=== PATIENT | male | born 1975 | race Caucasian/White ===

== ENCOUNTER 2016-12-20 19:02 | Emergency (ER) | payer OTHER ==
[~2016-12-20] VITALS: Ht 180.3 cm; Wt 127.0 kg
[~2016-12-20 19:02] MED LIST: AMITRIPTYLINE H10 MG PO; ASPIR-LOW81 MG PO; ATORVASTATIN CA80 MG PO; BACLOFEN10 MG PO; CARBAMAZEPINE200 M1 PO; CIPRO500 MG PO; FLOMAX0.4 MG PO; GLIPIZIDE5 MG PO; HYDROCODON-ACE1 EAC7 PO; LISINOPRIL-HCT1 EAC3 PO; MELOXICAM15 MG PO; METFORMIN HCL500 MG PO; MOTRIN600 MG PO; NICOTINE PATCH1 EAC2 TD; NOHOMEMEDS; NORCO 5/3251 TABLET PO; PEN-VEE K,VEET500 MG PO; PERCOCET 5/31 TABLET PO; PERCOCET 7.51 TABLET PO; PROMETHAZINE HC25 M1 PO; VALIUM5 MG PO; ZOFRAN4 MG PO
[2016-12-20 21:18] VITALS: BP 124/92
== END 2016-12-20 21:18 | disposition home or self-care (01) ==
LOC: EME 19:02
DX: L76.22 Postprocedural hemorrhage of skin and subcutaneous tissue following other procedure (principal); G89.18 Other acute postprocedural pain; M54.2 Cervicalgia; Z98.1 Arthrodesis status; R05 Cough; E11.9 Type 2 diabetes mellitus without complications; Z87.442 Personal history of urinary calculi; Z86.73 Personal history of transient ischemic attack (TIA), and cerebral infarction without residual deficits; Z79.891 Long term (current) use of opiate analgesic; F17.200 Nicotine dependence, unspecified, uncomplicated
CPT/HCPCS: 72040; 99281; 99284

== ENCOUNTER 2017-04-06 00:27 | Emergency (ER) | payer OTHER ==
[~2017-04-06] VITALS: Ht 180.3 cm; Wt 130.1 kg
[2017-04-06 01:14] LABS: BASOPHIL COUNT 0.1 K/uL (0-0.1); EOSINOPHIL (%) 5.4 % (0-5); EOSINOPHIL COUNT 0.8 K/uL (0-0.3); HEMATOCRIT 50.1 % (38.0-50.0); IMMATURE GRANULOCYTE (%) 0.4 % (0.0-0.7); IMMATURE GRANULOCYTE COUNT 0.1 K/uL; INSTRUMENT ABS NEUTROPHIL CT 7.7 K/uL; LYMPHOCYTE COUNT 4.8 K/uL (1.0-2.8); MCH 29.1 PG (29.0-34.0); MCHC 34.3 G/DL (30.0-36.0); MCV 84.8 FL (86-99); MEAN PLAT.VOLUME 9.6 uM^3 (9.0-12.4); MONOCYTE (%) 8.1 % (3-12); MONOCYTE COUNT 1.2 K/uL (0-0.8); NEUTROPHIL (%) 52.8 % (45-76); NEUTROPHIL COUNT 7.7 K/uL (1.8-6.4); PLATELET COUNT 323 K/uL (156-360); RBC DIS.WIDTH-CV 13.3 % (11.8-14.6); RBC DIS.WIDTH-SD 41.1 % (39-53); RED BLOOD COUNT 5.91 M/uL (4.00-5.50); WHITE BLOOD COUNT 14.6 K/uL (4.1-10.2)
[2017-04-06 01:23] LABS: CHLORIDE 100 mEq/L (99-109); POTASSIUM 3.5 mEq/L (3.7-5.4); SODIUM 136 mEq/L (136-147)
[2017-04-06 01:24] LABS: GLUCOSE 198 mg/dL (70-99); INTER. NORMALIZED RATIO 1.1; PROTHROMBIN TIME 10.7 (9.2-11.2); PTT 28.8 (25-32)
[2017-04-06 01:26] LABS: ANION GAP 10 MEQ/L (2-14)
[2017-04-06 01:28] LABS: GFR ESTIMATE (CALCULATED) > 59 mL/min/
[2017-04-06 01:29] LABS: UREA NITROGEN (BUN) 16 mg/dL (9-23)
[2017-04-06 01:34] LABS: TROP-I INTERPRETATION NEGATIVE; TROPONIN-I < 0.01 ng/mL (0.0-0.30)
[2017-04-06 02:22] LABS: HDL CHOLESTEROL 35 MG/DL (Desirable>=40); LDL CHOLESTEROL 92 mg/dL (Desirable<100); NON-HDL CHOLESTEROL 134 mg/dL (Desirable<160); TOTAL CHOLESTEROL 169 mg/dL (Desirable<200); TRIGLYCERIDES 209 MG/DL (Normal: <150)
[2017-04-06 07:45] LABS: Estimated Average Glucose 186 mg/dL (70-123); HEMOGLOBIN A1c (GLYCOHEMOGLOB) 8.1 % HGB (Below 5.7)
[2017-04-06 09:37] VITALS: BP 137/71
[2017-04-06 11:52] LABS: POINT-OF-CARE METER ID UU14174225
[2017-04-06] MEDS ORDERED: BUTALB-APAP-CA1 EACH PO (13:26)
== END 2017-04-06 08:44 | disposition home or self-care (01) ==
LOC: EME 00:27 → EDOF 06:17 → EME 06:17 → 5SOUTH 09:21 → EDOF 09:21 → 5SOUTH 14:28
PROVIDERS: Emergency Medicine; Internal Medicine
PROC: 009U3ZX Drainage of Spinal Canal, Percutaneous Approach, Diagnostic (ICD-10-PCS; principal; 2017-04-06)
DX: R51 Headache (principal); E11.9 Type 2 diabetes mellitus without complications; F32.9 Major depressive disorder, single episode, unspecified; G89.29 Other chronic pain; R20.2 Paresthesia of skin; R50.9 Fever, unspecified; R11.0 Nausea; R20.0 Anesthesia of skin; E66.01 Morbid (severe) obesity due to excess calories; Z86.73 Personal history of transient ischemic attack (TIA), and cerebral infarction without residual deficits; Z87.820 Personal history of traumatic brain injury; Z95.811 Presence of heart assist device; Z68.41 Body mass index [BMI] 40.0-44.9, adult; F17.200 Nicotine dependence, unspecified, uncomplicated
CPT/HCPCS: 70450; 70496; 70498; 70551; 71010; 80048; 80061; 81003; 82945; 82948; 83036; 84157; 84484; 85025; 85610; 85651; 85730; 87070; 87205; 89051; 93005; 99281; 99285; J1885; J2060; J7030

== ENCOUNTER 2017-10-15 01:41 | Emergency (ER) | payer OTHER ==
[~2017-10-15] VITALS: Ht 180.3 cm; Wt 135.0 kg
[~2017-10-15 01:41] MED LIST changes: +BUTALB-APAP-CA1 EACH PO
[2017-10-15 01:58] LABS: POINT-OF-CARE METER ID UU13113778
[2017-10-15 02:18] LABS: POINT-OF-CARE METER ID UU13113747
[2017-10-15 02:31] LABS: HEMATOCRIT 44.8 % (38.0-50.0); MCH 29.5 PG (29.0-34.0); MCHC 34.6 G/DL (30.0-36.0); MCV 85.3 FL (86-99); PLATELET COUNT 282 K/uL (156-360); RBC DIS.WIDTH-CV 12.8 % (11.8-14.6); RBC DIS.WIDTH-SD 39.8 % (39-53); RED BLOOD COUNT 5.25 M/uL (4.00-5.50); WHITE BLOOD COUNT 14.3 K/uL (4.1-10.2)
[2017-10-15 02:33] LABS: CARBON DIOXIDE (BICARBONATE) 28.7 MEQ/L (20-31)
[2017-10-15 02:48] LABS: CHLORIDE 102 mEq/L (99-109); POTASSIUM 3.9 mEq/L (3.7-5.4); SODIUM 136 mEq/L (136-147)
[2017-10-15 02:49] LABS: MAGNESIUM 1.8 mg/dL (1.3-2.7)
[2017-10-15 02:50] LABS: GLUCOSE 322 mg/dL (70-99)
[2017-10-15 02:52] LABS: ANION GAP 8 MEQ/L (2-14); TOTAL BILIRUBIN 0.2 mg/dL (0.0-1.0)
[2017-10-15 02:54] LABS: ALKALINE PHOSPHATASE 115 IU/L (3-129); GFR ESTIMATE (CALCULATED) > 59 mL/min/ (58.99-99999)
[2017-10-15 02:55] LABS: UREA NITROGEN (BUN) 12 mg/dL (9-23)
[2017-10-15 02:58] LABS: LIPASE 14 U/L (1.0-51.0)
[2017-10-15 03:39] LABS: ADD MIUA? NO; BILIRUBIN NEGATIVE; BLOOD NEGATIVE; COLOR YELLOW ((YELLOW)); GLUCOSE (STRIP) >=500; KETONES 5; LEUKOCYTES NEGATIVE; NITRITE NEGATIVE; PROTEIN (STRIP) NEGATIVE; SPECIFIC GRAVITY 1.035 (1.000-1.030); UCUL ADDED? NO; UROBILINOGEN 0.2 MG/DL (0.2-1.0)
[2017-10-15 03:43] LABS: POINT-OF-CARE METER ID UU13113747
[2017-10-15 04:46] VITALS: BP 118/81
[2017-10-15 04:52] LABS: POINT-OF-CARE METER ID UU13113747
[2017-10-20 22:46] LABS: Cotinine 1209 ng/mL (()); Nicotine 4515 ng/mL (())
== END 2017-10-15 04:50 | disposition home or self-care (01) ==
LOC: EME 01:41
PROVIDERS: Emergency Medicine
DX: E86.0 Dehydration (principal); E11.65 Type 2 diabetes mellitus with hyperglycemia; R42 Dizziness and giddiness; R06.02 Shortness of breath; Z86.73 Personal history of transient ischemic attack (TIA), and cerebral infarction without residual deficits; F17.200 Nicotine dependence, unspecified, uncomplicated
CPT/HCPCS: 71010; 80053; 80323 90; 81003; 82803; 82948; 83690; 83735; 84100; 85027; 93005; 99281; 99285; J7030

== ENCOUNTER 2017-12-04 03:26 | Observation (INO) | payer OTHER ==
[~2017-12-04] VITALS: Ht 180.3 cm; Wt 134.1 kg
[2017-12-04 10:54] LABS: BASOPHIL (%) 0.4 % (0-1); BASOPHIL COUNT 0.1 K/uL (0-0.1); EOSINOPHIL (%) 4.8 % (0-5); EOSINOPHIL COUNT 0.6 K/uL (0-0.3); HEMATOCRIT 43.5 % (38.0-50.0); HEMOGLOBIN 14.8 G/DL (12.5-16.6); IMMATURE GRANULOCYTE (%) 0.4 % (0.0-0.7); LYMPHOCYTE (%) 21.5 % (15-42); LYMPHOCYTE COUNT 2.7 K/uL (1.0-2.8); MCH 29.1 PG (29.0-34.0); MCV 85.6 FL (86-99); MONOCYTE (%) 8.4 % (3-12); MONOCYTE COUNT 1.1 K/uL (0-0.8); NEUTROPHIL (%) 64.5 % (45-76); NEUTROPHIL COUNT 8.1 K/uL (1.8-6.4); PLATELET COUNT 266 K/uL (156-360); RBC DIS.WIDTH-CV 12.4 % (11.8-14.6); RED BLOOD COUNT 5.08 M/uL (4.00-5.50); WHITE BLOOD COUNT 12.6 K/uL (4.1-10.2)
[2017-12-04 11:02] LABS: PTT 30.7 SEC (25-37)
[2017-12-04 11:04] LABS: CHLORIDE 100 mEq/L (99-109); POTASSIUM 3.9 mEq/L (3.7-5.4); SODIUM 137 mEq/L (136-147)
[2017-12-04 11:06] LABS: GLUCOSE 139 mg/dL (70-99)
[2017-12-04 11:10] LABS: CREATININE 0.8 mg/dL (0.6-1.3); GFR ESTIMATE (CALCULATED) > 59 mL/min/ (58.99-99999)
[2017-12-04 11:11] LABS: UREA NITROGEN (BUN) 12 mg/dL (9-23)
[2017-12-04 11:14] LABS: TROP-I INTERPRETATION NEGATIVE; TROPONIN-I < 0.01 ng/mL (0.0-0.30)
[2017-12-04] MEDS ORDERED: HYDROCHLOROTHIA25 MG PO (13:35)
[2017-12-04] MEDS ORDERED: METFORMIN HCL500 M1 PO (13:36)
[2017-12-04] MEDS ORDERED: LOSARTAN POTASS25 MG PO (13:36)
[2017-12-04] MEDS ORDERED: ESCITALOPRAM OX20 MG PO (13:37)
[2017-12-04] MEDS ORDERED: BUPROPION XL300 MG PO (13:37)
[2017-12-04] MEDS ORDERED: VICTOZA 2-0.6 MG/0.1 SC (13:37)
[2017-12-04] MEDS ORDERED: NEURONTIN300 MG PO (13:39)
[2017-12-04] MEDS ORDERED: FLEXERIL10 MG PO (13:40)
[2017-12-04 19:35] VITALS: BP 153/96
[2017-12-05 00:31] VITALS: BP 149/94
[2017-12-05 04:32] VITALS: BP 148/92
[2017-12-05 05:57] LABS: HEMOGLOBIN 13.3 G/DL (12.5-16.6); MCH 28.5 PG (29.0-34.0); MCHC 33.3 G/DL (30.0-36.0); MCV 85.7 FL (86-99); PLATELET COUNT 302 K/uL (156-360); RBC DIS.WIDTH-CV 12.4 % (11.8-14.6); RBC DIS.WIDTH-SD 38.8 % (39-53); RED BLOOD COUNT 4.67 M/uL (4.00-5.50); WHITE BLOOD COUNT 16.1 K/uL (4.1-10.2)
[2017-12-05 06:19] LABS: CHLORIDE 97 MEQ/L (99-109); CREATININE 0.9 MG/DL (0.6-1.3); GFR ESTIMATE (CALCULATED) > 59 mL/min/ (58.99-99999); GLUCOSE 145 mg/dL (70-99); SODIUM 136 MEQ/L (136-147); UREA NITROGEN (BUN) 10 mg/dL (9-23)
[2017-12-05 08:06] VITALS: BP 132/93
[2017-12-05 12:21] VITALS: BP 133/88
[2017-12-05 13:47] LABS: APPEARANCE CLEAR ((CLEAR)); BILIRUBIN NEGATIVE; BLOOD NEGATIVE; COLOR YELLOW ((YELLOW)); GLUCOSE (STRIP) NEGATIVE; KETONES NEGATIVE; LEUKOCYTES NEGATIVE; NITRITE NEGATIVE; PROTEIN (STRIP) NEGATIVE; UCUL ADDED? NO; UROBILINOGEN 0.2 MG/DL (0.2-1.0)
[2017-12-05 16:19] VITALS: BP 125/78
[2017-12-05 19:47] VITALS: BP 128/84
[2017-12-06 00:11] VITALS: BP 143/86
[2017-12-06 05:46] LABS: BASOPHIL (%) 0.2 % (0-1); EOSINOPHIL (%) 1.3 % (0-5); EOSINOPHIL COUNT 0.2 K/uL (0-0.3); HEMATOCRIT 42.5 % (38.0-50.0); HEMOGLOBIN 14.6 G/DL (12.5-16.6); IMMATURE GRANULOCYTE (%) 0.4 % (0.0-0.7); LYMPHOCYTE (%) 8.5 % (15-42); LYMPHOCYTE COUNT 1.4 K/uL (1.0-2.8); MCHC 34.4 G/DL (30.0-36.0); MCV 84.5 FL (86-99); MONOCYTE COUNT 0.5 K/uL (0-0.8); NEUTROPHIL (%) 86.6 % (45-76); PLATELET COUNT 330 K/uL (156-360); RBC DIS.WIDTH-CV 12.3 % (11.8-14.6); RED BLOOD COUNT 5.03 M/uL (4.00-5.50); WHITE BLOOD COUNT 16.2 K/uL (4.1-10.2)
[2017-12-06 06:26] LABS: CHLORIDE 97 MEQ/L (99-109); CREATININE 0.9 MG/DL (0.6-1.3); GFR ESTIMATE (CALCULATED) > 59 mL/min/ (58.99-99999); GLUCOSE 206 mg/dL (70-99); POTASSIUM 4.6 MEQ/L (3.7-5.4); SODIUM 135 MEQ/L (136-147); UREA NITROGEN (BUN) 15 mg/dL (9-23)
[2017-12-06 08:00] VITALS: BP 123/71
[2017-12-06] MEDS ORDERED: PREDNISONE10 MG PO (09:48)
[2017-12-06] MEDS ORDERED: PROTONIX40 MG PO (10:10)
== END 2017-12-06 10:25 | disposition home or self-care (01) ==
LOC: EME → EDBD 03:26 → EME 03:26 → EDOF 13:18 → ENRESERV 13:24 → CANRESERV 13:24 → ENRESERV 13:26 → EDOF 14:02 → ENRESERV 17:54 → 5WEST 19:15
PROVIDERS: Emergency Medicine; Hospitalist
DX: M62.838 Other muscle spasm (principal); M54.6 Pain in thoracic spine; M79.601 Pain in right arm; G89.18 Other acute postprocedural pain; Z98.1 Arthrodesis status; E11.65 Type 2 diabetes mellitus with hyperglycemia; I10 Essential (primary) hypertension; R93.3 Abnormal findings on diagnostic imaging of other parts of digestive tract; D72.829 Elevated white blood cell count, unspecified; Z86.73 Personal history of transient ischemic attack (TIA), and cerebral infarction without residual deficits; Z87.891 Personal history of nicotine dependence
CPT/HCPCS: 71275; 72125; 72128; 72156; 74176; 80048; 81003; 82948; 83605; 84484; 85025; 85027; 85610; 85730; 93005; G0378; J1170; J2250; J2270; J2405; J3010; J7050; J7509; S0028

== ENCOUNTER 2018-02-28 15:01 | Emergency (ER) | payer OTHER ==
[~2018-02-28] VITALS: Ht 170.2 cm; Wt 124.0 kg
[~2018-02-28 15:01] MED LIST changes: +BUPROPION XL300 MG PO; +ESCITALOPRAM OX20 MG PO; +FLEXERIL10 MG PO; +HYDROCHLOROTHIA25 MG PO; +LOSARTAN POTASS25 MG PO; +METFORMIN HCL500 M1 PO; +NEURONTIN300 MG PO; +PREDNISONE10 MG PO; +PROTONIX40 MG PO; +VICTOZA 2-0.6 MG/0.1 SC
[2018-02-28 16:47] VITALS: BP 149/86
== END 2018-02-28 16:48 | disposition home or self-care (01) ==
LOC: EME 15:01
DX: S80.11XA Contusion of right lower leg, initial encounter (principal); W10.9XXA Fall (on) (from) unspecified stairs and steps, initial encounter; I10 Essential (primary) hypertension; E78.5 Hyperlipidemia, unspecified; E11.9 Type 2 diabetes mellitus without complications; Z87.891 Personal history of nicotine dependence
CPT/HCPCS: 73590; 99281; 99283

== ENCOUNTER 2018-04-13 00:19 | Observation (INO) | payer OTHER ==
[~2018-04-13] VITALS: Ht 180.3 cm; Wt 129.0 kg
[~2018-04-13 00:19] MED LIST changes: -LOSARTAN POTASS25 MG PO; +LOSARTAN POTASS50 MG PO
[2018-04-13 01:33] LABS: ALBUMIN 4.3 g/dL (3.2-4.8); CHLORIDE 99 mEq/L (99-109); POTASSIUM 4.2 mEq/L (3.7-5.4); SODIUM 134 mEq/L (136-147)
[2018-04-13 01:35] LABS: TOTAL PROTEIN 6.8 g/dL (6.4-8.3)
[2018-04-13 01:36] LABS: HEMATOCRIT 43.7 % (38.0-50.0); HEMOGLOBIN 15.4 G/DL (12.5-16.6); MCH 29.8 PG (29.0-34.0); MCHC 35.2 G/DL (30.0-36.0); MCV 84.7 FL (86-99); PLATELET COUNT 288 K/uL (156-360); RBC DIS.WIDTH-CV 12.7 % (11.8-14.6); RBC DIS.WIDTH-SD 39.2 % (39-53); RED BLOOD COUNT 5.16 M/uL (4.00-5.50); WHITE BLOOD COUNT 13.1 K/uL (4.1-10.2)
[2018-04-13 01:37] LABS: GLUCOSE 435 mg/dL (70-99); TOTAL BILIRUBIN 0.2 mg/dL (0.0-1.0)
[2018-04-13 01:39] LABS: ALKALINE PHOSPHATASE 129 IU/L (3-129); CREATININE 0.9 mg/dL (0.6-1.3); GFR ESTIMATE (CALCULATED) > 59 mL/min/ (58.99-99999)
[2018-04-13 01:40] LABS: UREA NITROGEN (BUN) 12 mg/dL (9-23)
[2018-04-13 01:41] LABS: AST (GOT) 24 IU/L (2-34)
[2018-04-13 01:42] LABS: ALT (GPT) 44 IU/L (3-49)
[2018-04-13 02:20] LABS: APPEARANCE CLEAR ((CLEAR)); BILIRUBIN NEGATIVE; BLOOD NEGATIVE; COLOR STRAW ((YELLOW)); GLUCOSE (STRIP) >=500; KETONES 5; LEUKOCYTES NEGATIVE; NITRITE NEGATIVE; PROTEIN (STRIP) NEGATIVE; SPECIFIC GRAVITY 1.037 (1.000-1.030); UCUL ADDED? NO; UROBILINOGEN 0.2 MG/DL (0.2-1.0)
[2018-04-13] MEDS ORDERED: PERCOCET 7.51 TABLET PO (06:46)
[2018-04-13] MEDS ORDERED: LO-DOSE ASPIRIN81 M1 PO (08:10)
[2018-04-13] MEDS ORDERED: ATORVASTATIN CA80 MG PO (08:11)
[2018-04-13 09:02] LABS: HDL CHOLESTEROL 33 MG/DL (Desirable>=40); LDL CHOLESTEROL 102 mg/dL (Desirable<100); NON-HDL CHOLESTEROL 177 mg/dL (Desirable<160); TOTAL CHOLESTEROL 210 mg/dL (Desirable<200); TRIGLYCERIDES 375 MG/DL (Normal: <150)
[2018-04-13 09:26] LABS: SERUM ETHYL ALCOHOL < 10 mg/dL
[2018-04-13 09:37] LABS: BENZODIAZEPINES, URINE SCREEN Negative (200 ng/mL)
[2018-04-13 09:40] VITALS: BP 158/98
[2018-04-13] MEDS ORDERED: PLAVIX75 MG PO (14:27)
[2018-04-13 16:00] VITALS: BP 152/87
== END 2018-04-13 16:07 | disposition home or self-care (01) ==
LOC: EME 00:19 → EDOF 07:41 → ENRESERV 07:43 → 5SOUTH 09:28
PROVIDERS: Family Medicine; Physician Assistant
DX: G45.9 Transient cerebral ischemic attack, unspecified (principal); Z86.73 Personal history of transient ischemic attack (TIA), and cerebral infarction without residual deficits; E11.65 Type 2 diabetes mellitus with hyperglycemia; Z91.128 Patient's intentional underdosing of medication regimen for other reason; Z91.19 Patient's noncompliance with other medical treatment and regimen; I10 Essential (primary) hypertension; R91.8 Other nonspecific abnormal finding of lung field; Z87.820 Personal history of traumatic brain injury; Z98.1 Arthrodesis status; F41.9 Anxiety disorder, unspecified; Z87.442 Personal history of urinary calculi; F17.200 Nicotine dependence, unspecified, uncomplicated; Z79.82 Long term (current) use of aspirin
CPT/HCPCS: 70496; 70498; 70551; 71046; 80053; 80061; 80306 90; 81003; 82948; 83036; 85027; 93005; 93306; 99281; 99285; G0378; G0480; J7030